=== PATIENT | female | born 1995 | race Caucasian/White ===

== ENCOUNTER 2024-12-30 15:01 | Emergency (ER) | payer OTHER, SELFPAY ==
[2024-12-30 15:11] VITALS: BP 139/85
[2024-12-30 15:43] LABS: Hematocrit 37.7 % (37.0-47.0); Hemoglobin 13.3 g/dL (12.0-16.0); Mean Corp Hgb Conc. 35.3 g/dL (33.0-37.0); Mean Corpuscular Volume 89.5 fL (81.0-99.0); Nucleated Red Blood Cells % 0 %; Platelet Count 296 10^3/uL (130-400); Red Cell Dist. Width 12.0 % (11.5-14.5)
[2024-12-30 15:52] LABS: HCG, Serum Qualitative Screen Negative
[2024-12-30 15:58] LABS: ALT (SGPT) 33 U/L (0-35); AST (SGOT) 26 U/L (14-36); Albumin 4.9 g/dl (3.5-5.0); Alkaline Phosphatase 61 U/L (38-126); Blood Urea Nitrogen 15 mg/dl (7-17); Calcium 9.3 mg/dl (8.4-10.2); Carbon Dioxide 23 mmol/L (22-30); Chloride 106 mmol/L (98-107); Glucose 113 mg/dl (70-99); Potassium 4.2 mmol/L (3.5-5.1); Sodium 139 mmol/L (135-145); Total Protein 8.2 g/dl (6.3-8.2); eGFR > 60.00
[2024-12-30 16:42] VITALS: BMI 25.4
--- NOTE | 2024-12-30 17:00 | EDRN ---
Received patient on stretcher with c/o right mid back pain that started last night. Patient stated that she took Tylenol this morning with some relief. Patient stated that she has pain when she takes a deep breath. Denies c/o SOB and chest pain.
Patient stated that she traveled from [facility] a week ago.
--- NOTE | 2024-12-30 17:14 | ED.GENMED ---
History of Present Illness
<VICK Anguiano - Last Filed: 12/31/24 01:22>
General
Chief Complaint: Back Pain
Source: patient
Exam Limitations: none
Time Seen by Provider: 12/30/24 16:24
Nursing documentation reviewed up to this point in time: agreed with
History of Present Illness
History of Present Illness:
29-year-old female presents to the ER for evaluation. Patient reports she started last night with right mid back pain last night. This morning she noted that pain is worse when she takes a deep breath. She denies any recent injury. Pain is not
made worse with movement. She did have a long plane ride recently. She traveled back and forth to [facility] and got back last week. She also believes he either had COVID or flu last week as well. She did not really have a lot of coughing but had
viral symptoms. She denies any lower extremity swelling.
She is not on control she does not smoke.
Phy Exam
<VICK Anguiano - Last Filed: 12/31/24 01:22>
General Physical Exam
General Presentation: no apparent distress
General age: appears stated age
General Skin: warm and dry
General Habitus: normal
General Mental: alert
General Hydration: appears well hydrated
Cardiovascular Exam
Cardiovascular Exam: regular rate/rhythm, no murmur and normal peripheral pulses
Pulmonary Exam
Pulmonary Exam: lungs clear and no respiratory distress
Neurological Exam
Neurological Exam: alert and oriented x3
Musculoskeletal Exam
Musculoskeletal Exam: full ROM and other (Normal inspection to back nontender)
Skin Exam
Skin Exam: normal color and warm/dry
Psychiatric Exam
Psychiatric Exam: normal mood/affect
Scores
<VICK Anguiano - Last Filed: 12/31/24 01:22>
PERC Rule Criteria
Age <50 years: Yes
HR <100 bpm: Yes
Room air oxygen sat >94%: Yes
History of DVT or PE: No
Recent trauma or surgery: No
Hemoptysis: No
Exogenous estrogen: No
Clinical signs suggestive of DVT: No
: No
Course
<VICK Anguiano - Last Filed: 12/31/24 01:22>
Orders/Labs/Results
Orders:
Orders
12/30/24 15:15
Test Result ONCE
12/30/24 15:20
CBC/With Diff [Complete Blood Count/With Diff] Urgent
CMP [Comprehensive Metabolic Panel] Urgent
HCG, Serum Qualitative Screen Urgent
12/30/24 17:32
DDimer [D-Dimer] Urgent
12/30/24 19:00
Venous Doppler Lwr Ext Bilat [US Periph Venous LOWER Ext Masood] Urgent
Comment:
Reason For Exam: leg pain
12/30/24 19:54
UA Reflex to Culture [Urinalysis Reflex To Culture] Urgent
Date Specimen was Collected: 12/30/24
Time Specimen was Collected: 19:50
Urine Microscopic Reflex Cult Urgent
Urine Culture Urgent
LINCOLN Source: U
Specimen Description:
Date Specimen was Collected: 12/30/24
Time Specimen was Collected: 19:50
12/30/24 20:00
Chest [CR Chest - 2 Views ] Urgent
Comment:
Reason For Exam: pain in back
Abnormal Lab Results
12/30/24 12/30/24
15:20 19:54
MCH 31.6 H pg
(27.0-31.0)
Absolute Neuts (auto) 6.9 H 10^3/uL
(1.4-6.5)
Absolute Monos (auto) 0.8 H 10^3/uL
(0.1-0.6)
Glucose 113 H mg/dl
(70-99)
Ur Occult Blood Reflex 3+ A
(Negative)
Leukocyte Esterase Rfl 1+ A
(Negative)
Urine RBC 3-6 A /HPF
(0-2)
Urine Bacteria (Reflex) Few A
(Negative)
12/30/24 15:20
12/30/24 15:20
Vital Signs
Initial and Last Documented VS:
Initial Vital Signs
Temp Pulse Resp BP Pulse Ox
99.0 F 87 20 139/85 100
12/30/24 15:11 12/30/24 15:11 12/30/24 15:11 12/30/24 15:11 12/30/24 15:11
Last Documented Vital Signs
Temp Pulse Resp BP Pulse Ox
99.0 F 70 14 104/67 100
12/30/24 15:11 12/30/24 21:20 12/30/24 21:20 12/30/24 21:20 12/30/24 21:20
Pain Management Physician consulted with Physician
Pain Management Physician consulted with physician?: Yes
Name of Physician Consulted: DR Daley
<Devon Daley MD - Last Filed: 12/30/24 21:27>
Orders/Labs/Results
Orders:
Orders
12/30/24 15:15
Test Result ONCE
12/30/24 15:20
CBC/With Diff [Complete Blood Count/With Diff] Urgent
CMP [Comprehensive Metabolic Panel] Urgent
HCG, Serum Qualitative Screen Urgent
12/30/24 17:32
DDimer [D-Dimer] Urgent
12/30/24 19:00
Venous Doppler Lwr Ext Bilat [US Periph Venous LOWER Ext Masood] Urgent
Comment:
Reason For Exam: leg pain
12/30/24 19:54
UA Reflex to Culture [Urinalysis Reflex To Culture] Urgent
Date Specimen was Collected: 12/30/24
Time Specimen was Collected: 19:50
Urine Microscopic Reflex Cult Urgent
Urine Culture Urgent
LINCOLN Source: U
Specimen Description:
Date Specimen was Collected: 12/30/24
Time Specimen was Collected: 19:50
12/30/24 20:00
Chest [CR Chest - 2 Views ] Urgent
Comment:
Reason For Exam: pain in back
Abnormal Lab Results
12/30/24 12/30/24
15:20 19:54
MCH 31.6 H pg
(27.0-31.0)
Absolute Neuts (auto) 6.9 H 10^3/uL
(1.4-6.5)
Absolute Monos (auto) 0.8 H 10^3/uL
(0.1-0.6)
Glucose 113 H mg/dl
(70-99)
Ur Occult Blood Reflex 3+ A
(Negative)
Leukocyte Esterase Rfl 1+ A
(Negative)
Urine RBC 3-6 A /HPF
(0-2)
Urine Bacteria (Reflex) Few A
(Negative)
12/30/24 15:20
12/30/24 15:20
Vital Signs
Initial and Last Documented VS:
Initial Vital Signs
Temp Pulse Resp BP Pulse Ox
99.0 F 87 20 139/85 100
12/30/24 15:11 12/30/24 15:11 12/30/24 15:11 12/30/24 15:11 12/30/24 15:11
Last Documented Vital Signs
Temp Pulse Resp BP Pulse Ox
99.0 F 70 14 104/67 100
12/30/24 15:11 12/30/24 21:20 12/30/24 21:20 12/30/24 21:20 12/30/24 21:20
<VICK Anguiano - Last Filed: 12/31/24 01:22>
MDM/Problems Addressed
Differential Diagnosis Includes:
Not limited to muscular pain, PE
MDM/Problems Addressed:
As documented patient is a 29-year-old female who presents with mild discomfort to right posterior back with taking a deep breath since last night. Her father is an ER physician and she recently traveled to [facility] and got back last week and was
sent to the ER for evaluation. pt denies any actual shortness of breath. She denies any leg swelling. She is nontachycardic nontachypneic and nonhypoxic. She has no prior DVT PE and does not oral contraceptive she is a non-smoker. D-dimer was
ordered and negative. Venous ultrasounds of bilateral lower extremities were ordered and negative. Chest x-ray negative
Urinalysis shows very trace blood however pain not necessarily consistent with kidney stone she is due for her period any day.
Patient was eval by ED physician.
At this time with patient's well appearance negative D-dimer normal vital signs and no complaints of shortness of breath we will discharge home without any further workup. We did discuss CAT scan however we will hold off on radiation as discussed.
Strict return precautions given.
<VICK Anguiano - Last Filed: 12/31/24 01:22>
*Radiology
Radiology exam reviewed: radiology read reviewed
*Pulse Oximetry
SaO2: 100
Oxygen Mode of Delivery: Room air
Patient hypoxic: no
*Critical Care Note
Total Time (30-74mins, 75-104mins- exclusive of procedures): Not Applicable
ED Attending Note
<VICK Anguiano - Last Filed: 12/31/24 01:22>
-
Portions of this chart may have been created with voice recognition software.� Occasional wrong word or��sound alike� substitutions may have occurred due to the inherent limitations of voice recognition software.
<Devon Daley MD - Last Filed: 12/30/24 21:27>
ED Attending Note
Patient seen and examined by attending physician: Yes
ED Attending Note:
Patient presents to ED secondary to sudden onset of right mid back pain, starting last night when she was lying in bed. Pain has worsened during the day. Patient reports having been on a 10-hour flight 10 days ago. Denies leg pain or swelling.
Denies trauma. Denies difficulty urination. Denies fever or chills. However, patient states that she has had cold-like symptoms for the past 1 week, finally improved 2 days ago. Symptoms consist of nasal congestion, fatigue, and muscle ache.
Denies nausea or vomiting. Denies chest pain. Denies shortness of breath. Patient states that pain is worse with certain movement and with deep inspiration. Denies family history of blood clots. Denies family history of kidney stones. Denies
direct trauma. Denies recent change activities. Denies previous history of similar symptoms. There is no family history of blood clots. Patient has taken Tylenol with improvement.
Physical Exam
General: no apparent distress, not acutely ill. afebrile.
Head: nc/at. eomi
Neck: supple. normal range of motion.
Heart: s1/s2 regular rate and rhythm
Lungs: no acute respiratory distress. clear bilaterally
Abdomen: normal bowel sounds. not tender. no cva tenderness
Neuro: alert and oriented x 3. no focal neurological deficits
Skin: no rash
Psychiatric: well kept. interactive and cooperative
Extremities: no edema. no calf tenderness.
Patient with an unremarkable workup in ED, including D-dimer, lower extremity ultrasound. However, 3 of 6 RBCs noted on urinalysis, raising possibility of renal colic as etiology behind her symptoms. As such, we will discuss with patient about
potentially obtaining renal ultrasound as an outpatient, if her symptoms persist with rest and NSAIDs. Patient otherwise is afebrile, hemodynamically stable, and appears comfortable, at time of discharge. No indication for CT angiogram chest at
this time for evaluation for PE
Discharge Plan
Departure
Patient Disposition: Home (Routine Discharge)
Date of Disposition: 12/30/24
Time of Disposition: 21:41
Patient with high blood pressure during this ER visit?: No
Condition: Fair
Covid-19: Not Applicable
Discharge Problem:
Back pain
Instructions: Upper Back Pain (DC)
Prescriptions:
No Action
No Current Medications
0
Referrals:
NONE,* [Family Provider, Internal Medicine]
Activity Restrictions/Additional Instructions:
As discussed you may take Tylenol and alternate with ibuprofen for symptoms. Your chest x-ray was negative for pneumonia. Your ultrasounds were negative for blood clot and your D-dimer test was normal. Urinalysis was negative for infection.
There was a very small amount of blood in your urine please have this rechecked with your family doctor.
Return if any worsening of symptoms shortness of breath increased pain with deep breath or any further concerns.
Follow-up with your family doctor in the next several days for reevaluation.
Interventions
Interventions:
*Risk Screen - Suicide Last Done: 12/30/24 15:11
*General Assessment Last Done: 12/30/24 15:11
*Neglect/Abuse Screening Last Done: 12/30/24 15:11
*ED- Fall Risk Assessment Last Done: 12/30/24 16:42
*ED COVID-19 Vaccine History Last Done: 12/30/24 17:23
*ED Influenza Vaccine History Last Done: 12/30/24 17:23
*Nursing Disposition Last Done: 12/30/24 21:57
ED-Musculoskeletal Assessment Last Done: 12/30/24 20:06
Discharge Date and Time
Discharge Date/Time: 12/30/24 21:57
Print Language: ICELANDIC
[2024-12-30 17:24] VITALS: BP 109/72
[2024-12-30 17:51] LABS: D-Dimer 0.31 ug/mlFEU (0.00-0.50)
[2024-12-30 18:00] VITALS: BP 103/66
[2024-12-30 19:49] VITALS: BP 106/63
[2024-12-30 19:59] LABS: Urine Character Clear (Clear)
[2024-12-30 20:05] LABS: Urine Squamous Cell >30 /LPF (Few)
[2024-12-30 20:06] LABS: Urine White Cell 0-2 /HPF (0-5)
--- NOTE | 2024-12-30 20:07 | EDRN ---
Pt returned from a trip to [facility] about 1.5 weeks ago. Last night, pt noted back pain in R mid-lower back when she took a deep breath. When pt woke this morning, the pain was excruciating so she took tylenol. Pt visited her father who is an ED
physician and was advised to come to the ED for evaluation. Pt says the pain is less intense now and only when she takes a deep breath. Pt denies cp, sob, abd pain, n/v, fever/chills/cough, swelling/pain in legs, urinary symptoms.
[2024-12-30 21:20] VITALS: BP 104/67
== END 2024-12-30 21:57 | disposition home or self-care (01) ==
LOC: EMR 15:01
PROVIDERS: Emergency Medicine; Nurse Practitioner; EMERGENCY PHYSICIAN Emergency Medicine
DX: M54.6 Pain in thoracic spine (principal); R07.1 Chest pain on breathing; M79.605 Pain in left leg; M79.604 Pain in right leg
CPT/HCPCS: 99284; 71046; 80053; 81003; 81015; 84703; 85025; 85379; 87086; 93970

== ENCOUNTER → 2025-01-04 07:29 | Outpatient (REF) | payer OTHER, SELFPAY | LOC: MRI 3T 07:29 | PROVIDERS: ATTENDING PHYSICIAN Obstetrics & Gynecology Gynecology | DX: R92.2 Inconclusive mammogram (principal); R92.8 Other abnormal and inconclusive findings on diagnostic imaging of breast | CPT/HCPCS: 77049; A9585 ==